=== PATIENT | female | born 1950 | race Caucasian/White ===

== ENCOUNTER 2018-01-25 11:23 | Emergency (ER) | payer MEDICARE, BC ==
[~2018-01-25] VITALS: Ht 157.5 cm; Wt 71.2 kg
[2018-01-25] MEDS ORDERED: KEFLEX500 MG PO ×2 (11:42→12:40)
[2018-01-25] MEDS ORDERED: ASPIR-TRIN325 MG PO (11:43)
[2018-01-25] MEDS ORDERED: LYSINE500 MG PO (11:43)
[2018-01-25] MEDS ORDERED: ALEVE220 M1 PO (11:44)
== END 2018-01-25 12:50 | disposition home or self-care (01) ==
LOC: ED 11:23
DX: L03.116 Cellulitis of left lower limb (principal); Z87.891 Personal history of nicotine dependence; Z79.899 Other long term (current) drug therapy; Z79.82 Long term (current) use of aspirin
CPT/HCPCS: 93971; 99283